=== PATIENT | male | born 1950 | race American Indian/Alaskan Native ===

== ENCOUNTER 2017-07-29 09:56 | Emergency (ER) | payer MEDICARE ==
--- NOTE | 2017-07-29 10:31 | Emergency Department Report ---
Chief Complaint: Chest Pain Stated Complaint: CP/BACK PAIN/RICHIE Time Seen by Provider: 07/29/17 10:28 - HPI History of Present Illness: PT c/o cough x 1 week Sore throat x 1 week + SOB - ROS Review of Systems: + wheezing + cough + R chest pain + back pain - Exam Vital Signs: Vital Signs 07/29/17 10:04 Temperature 98 F Pulse Rate 60 Respiratory 18 Rate Blood Pressure 158/83 O2 Sat by Pulse 99 Oximetry Physical Exam: no exudative pharyngitis noted no chest wall tenderness no wheezing appreciated at this time MSE screening note: Focused history and physical exam performed. Due to findings the following was ordered: ekg, labs, xr ED Disposition for MSE Condition: Stable Referrals: PRIMARY CARE, [Primary Care Provider] - 3-5 Days
--- NOTE | 2017-07-29 11:08 | XRay Report ---
PA and lateral chest: Wheezing; SOB; cough. There is a faint area of patchy density in the right upper lobe area. The lungs otherwise are clear and unremarkable. The heart is normal in size. No prior study for comparison. Impression: Questionable right upper lobe infiltrate.
[2017-07-29 12:01] LABS: Basophils % (Auto) 0.7 % (0.0-1.8); Eosinophils % (Auto) 4.7 % (0.0-4.3); Hemoglobin 14.5 gm/dl (11.8-15.2); Mean Corpuscular HGB Conc 33 % (32-34); Mean Corpuscular Hemoglobin 29 pg (28-32); Mean Corpuscular Volume 88 fl (84-94); Platelet Count 193 K/mm3 (140-440); Red Blood Count 4.98 M/mm3 (3.65-5.03); Red Cell Distribution Width 14.5 % (13.2-15.2); White Blood Count 5.7 K/mm3 (4.5-11.0)
[2017-07-29 12:04] LABS: BUN/Creatinine Ratio 11; Blood Urea Nitrogen 8 mg/dL (9-20); Calcium 8.4 mg/dL (8.4-10.2); Carbon Dioxide 27 mmol/L (22-30); Glucose 98 mg/dL (75-100)
[2017-07-29 12:05] LABS: Anion Gap 15 mmol/L; Chloride 106.2 mmol/L (98-107); Potassium 4.8 mmol/L (3.6-5.0); Sodium 143 mmol/L (137-145)
[2017-07-29] MEDS ORDERED: PROVENTIL IH ONE (13:56)
[2017-07-29] MEDS ORDERED: ZITHROMAX PO ONE (13:56)
[2017-07-29] MEDS ORDERED: ALUM-MAG HYDROX-SIMETH 200-200-20MG/5ML PO ONE (13:56)
[2017-07-29] MEDS ORDERED: TORADOL IM ONE (13:56)
--- NOTE | 2017-07-29 13:58 | Emergency Department Report ---
- General Chief Complaint: Chest Pain Stated Complaint: CP/BACK PAIN/RICHIE Time Seen by Provider: 07/29/17 10:28 Source: patient, RN notes reviewed Mode of arrival: Ambulatory Limitations: No Limitations - History of Present Illness Initial Comments: This is a 67-year-old male who was previously on known to this provider. Patient endorses a history of hypothyroidism, gout and hypertension. He also endorses a history of intermittent bronchitis, reports he does not consume tobacco, cannabis, cocaine, marijuana. Patient presents to the ER with a complaint of cough 1 week. It is productive of mucus. It is associated with anterior chest wall pain, and the pain in the chest wall was not present when he is not coughing. The chest wall pain does not radiate to the back, arms or neck. There is no posterior leg pain or leg swelling, no recent trips greater than 4 hours, and no recent hospital admissions. Patient denies nausea, vomiting, diaphoresis. He has mild soreness of breath only when he coughs. Otherwise, there is no shortness of breath. His symptoms have been present for one week. He reports he typically improve when he gets "antibiotics." No recent travel, no recent incarceration, no IV drug abuse. He also describes lower back pain which is associated with coughing. There is no upper thoracic pain at this time. MD Complaint: cough, sore throat, nasal congestion -: Gradual Quality: dull Consistency: intermittent Improves With: rest Worsens With: activity Associated Symptoms: myalgias, rhinorrhea, nasal congestion, sore throat, cough , chest pain. denies: fever, chills, abdominal pain, nausea, vomiting, diarrhea , dysuria, rash, confusion, right sweats, weight loss, epistaxis, hoarseness, ear pain - Related Data Previous Rx's Medication Instructions Recorded Last Taken Type Albuterol Sulfate [Albuterol 0.63% 0.63 mg IH Q4HR PRN #2 ml 07/29/17 Unknown Rx NEBS] Albuterol Sulfate [Proair 90 mcg IH Q4HR PRN #2 aer.[email or web address] 07/29/17 Unknown Rx Respiclick] Azithromycin [Zithromax TAB] 250 mg PO QDAY #4 tablet 07/29/17 Unknown Rx Benzonatate [Tessalon Perles] 100 mg PO Q8HR PRN #30 capsule 07/29/17 Unknown Rx Fluticasone [Flonase] 1 spray NS QDAY #1 bottle 07/29/17 Unknown Rx Ibuprofen [Motrin] 600 mg PO Q8H PRN #30 tablet 07/29/17 Unknown Rx Allergies Allergy/AdvReac Type Severity Reaction Status Date / Time codeine Allergy Unknown Verified 07/29/17 10:08 ED Review of Systems ROS: Stated complaint: CP/BACK PAIN/RICHIE Other details as noted in HPI Constitutional: denies: fever Eyes: denies: vision change ENT: throat pain, congestion Respiratory: cough Cardiovascular: chest pain Gastrointestinal: denies: abdominal pain Genitourinary: denies: dysuria Musculoskeletal: back pain, myalgia Skin: denies: lesions Neurological: denies: weakness Psychiatric: denies: anxiety ED Past Medical Hx - Past Medical History Previous Medical History?: Yes Hx Hypertension: Yes Additional medical history: gout - Social History Smoking Status: Never Smoker Substance Use Type: None - Medications Home Medications: Home Medications Medication Instructions Recorded Confirmed Last Taken Type Albuterol Sulfate [Albuterol 0.63% 0.63 mg IH Q4HR PRN #2 ml 07/29/17 Unknown Rx NEBS] Albuterol Sulfate [Proair 90 mcg IH Q4HR PRN #2 aer.pow.ba 07/29/17 Unknown Rx Respiclick] Azithromycin [Zithromax TAB] 250 mg PO QDAY #4 tablet 07/29/17 Unknown Rx Benzonatate [Tessalon Perles] 100 mg PO Q8HR PRN #30 capsule 07/29/17 Unknown Rx Fluticasone [Flonase] 1 spray NS QDAY #1 bottle 07/29/17 Unknown Rx Ibuprofen [Motrin] 600 mg PO Q8H PRN #30 tablet 07/29/17 Unknown Rx ED Physical Exam - General Limitations: No Limitations General appearance: alert, in no apparent distress - Head Head exam: Present: atraumatic, normocephalic - Eye Eye exam: Present: normal appearance, EOMI. Absent: nystagmus - ENT ENT exam: Present: normal exam, normal orophraynx, mucous membranes moist, normal external ear exam - Neck Neck exam: Present: normal inspection, full ROM. Absent: tenderness, meningismus - Respiratory Respiratory exam: Present: normal lung sounds bilaterally, chest wall tenderness. Absent: respiratory distress, wheezes, rales, rhonchi, stridor - Cardiovascular Cardiovascular Exam: Present: regular rate, normal rhythm, normal heart sounds. Absent: bradycardia, tachycardia, irregular rhythm, systolic murmur, diastolic murmur, rubs, gallop - GI/Abdominal GI/Abdominal exam: Present: soft, normal bowel sounds. Absent: distended, tenderness, guarding, rebound, rigid, pulsatile mass - Rectal Rectal exam: Present: deferred - Extremities Exam Extremities exam: Present: normal inspection, full ROM, normal capillary refill. Absent: calf tenderness - Back Exam Back exam: Present: normal inspection, full ROM. Absent: tenderness, CVA tenderness (R), CVA tenderness (L), muscle spasm, paraspinal tenderness, vertebral tenderness - Neurological Exam Neurological exam: Present: alert, oriented X3, normal gait, other (Extraocular movements intact. Tongue midline. No facial droop. Facial sensation intact to light touch in the V1, V2, V3 distribution bilaterally. 5 and 5 strength in 4 extremities.. Sensation is intact to light touch in 4 extremities.). Absent : motor sensory deficit - Psychiatric Psychiatric exam: Present: normal affect, normal mood - Skin Skin exam: Present: warm, dry, intact, normal color. Absent: rash ED Course Vital Signs 07/29/17 07/29/17 07/29/17 10:04 13:56 14:03 Temperature 98 F 97.7 F Pulse Rate 60 57 L Pulse Rate [ 92 H Bilateral] Respiratory 18 16 Rate Respiratory 16 Rate [Bilateral ] Blood Pressure 158/83 Blood Pressure 175/93 [Left] O2 Sat by Pulse 99 99 Oximetry 07/29/17 14:08 Temperature Pulse Rate Pulse Rate [ 92 H Bilateral] Respiratory Rate Respiratory 16 Rate [Bilateral ] Blood Pressure Blood Pressure [Left] O2 Sat by Pulse Oximetry ED Medical Decision Making - Lab Data Result diagrams: 07/29/17 11:07 07/29/17 11:07 Vital Signs 07/29/17 07/29/17 07/29/17 10:04 13:56 14:03 Temperature 98 F 97.7 F Pulse Rate 60 57 L Pulse Rate [ 92 H Bilateral] Respiratory 18 16 Rate Respiratory 16 Rate [Bilateral ] Blood Pressure 158/83 Blood Pressure 175/93 [Left] O2 Sat by Pulse 99 99 Oximetry 07/29/17 14:08 Temperature Pulse Rate Pulse Rate [ 92 H Bilateral] Respiratory Rate Respiratory 16 Rate [Bilateral ] Blood Pressure Blood Pressure [Left] O2 Sat by Pulse Oximetry Lab Results 07/29/17 07/29/17 07/29/17 Range/Units 11:07 11:07 11:07 WBC 5.7 (4.5-11.0) K/mm3 RBC 4.98 (3.65-5.03) M/mm3 Hgb 14.5 (11.8-15.2) gm/dl Hct 44.0 (35.5-45.6) % MCV 88 (84-94) fl MCH 29 (28-32) pg MCHC 33 (32-34) % RDW 14.5 (13.2-15.2) % Plt Count 193 (140-440) K/mm3 Lymph % (Auto) 35.2 H (13.4-35.0) % [place] % (Auto) 10.6 H (0.0-7.3) % Eos % (Auto) 4.7 H (0.0-4.3) % Baso % (Auto) 0.7 (0.0-1.8) % Lymph # 2.0 (1.2-5.4) K/mm3 [place] # 0.6 (0.0-0.8) K/mm3 Eos # 0.3 (0.0-0.4) K/mm3 Baso # 0.0 (0.0-0.1) K/mm3 Seg Neutrophils % 48.8 (40.0-70.0) % Seg Neutrophils # 2.8 (1.8-7.7) K/mm3 Sodium 143 (137-145) mmol/L Potassium 4.8 (3.6-5.0) mmol/L Chloride 106.2 (98-107) mmol/L Carbon Dioxide 27 (22-30) mmol/L Anion Gap 15 mmol/L BUN 8 L (9-20) mg/dL Creatinine 0.7 L (0.8-1.5) mg/dL Estimated GFR > 60 ml/min BUN/Creatinine Ratio 11 % Glucose 98 (75-100) mg/dL Calcium 8.4 (8.4-10.2) mg/dL Troponin T < 0.010 (0.00-0.029) ng/mL NT-Pro-B Natriuret Pep 73.80 (0-900) pg/mL - EKG Data -: EKG Interpreted by Ms - EKG Data 07/29/17 15:20 Sinus, 60 bpm, normal axis, normal intervals, not morphologically consistent with STEMI. EKG #2 demonstrates sinus bradycardia, 52 bpm, normal intervals, normal axis, motion artifact - Radiology Data Radiology results: report reviewed, image reviewed X-ray of the chest suggest possible mild upper lobe infiltrate in the right hemithorax. Otherwise no acute disease. - Medical Decision Making Differential diagnosis: Bronchitis, pneumonia, costochondritis Assessment and plan: 67-year-old male, no pulmonary embolus or DVT risk factors , low risk by well's criteria, low risk by RYLAND score, low risk by heart score, with 1 week of cough, mucus production, chest wall pain, lower back pain. Patient is afebrile, with reassuring vital signs, reproducible chest wall discomfort, slight hypertension. Symptoms present for one week, no suspicion for unstable angina or acute coronary syndrome at this time given clinical history and exam, as per the [employer] clinical policy, myocardial infarction may be excluded with 1 set of troponins Are present for greater than 8 hours. Clinically do not appreciate any focal findings in the upper lung carballo, patient does not have risk factors for TB, we'll treat empirically for bronchitis with albuterol, cough medication, azithromycin. Return precautions are reviewed. Critical care attestation.: If time is entered above; I have spent that time in minutes in the direct care of this critically ill patient, excluding procedure time. ED Disposition Clinical Impression: Bronchitis Disposition: [id number] TO HOME OR SELFCARE Is pt being admited?: No Does the pt Need Aspirin: No Condition: Stable Instructions: Acute Bronchitis (ED) Additional Instructions: Symptoms likely coming from bronchitis. Symptoms from bronchitis typically take 4-6 weeks to resolve. Take the medications as directed. Follow up with a primary care doctor within the next 2 weeks. Please note that blood pressure was elevated. This should be followed up and managed by an outpatient primary care doctor. Long-term complications of hypertension and elevated blood pressure include stroke, heart attack, disability, , paralysis, loss of quality of life. Return to the ER right away with new pain, worsening pain, migration of pain, fevers, chills, lethargy, irritability, projectile vomiting, change in mental status, inability to tolerate liquid feeds. Prescriptions: Albuterol Sulfate [Albuterol 0.63% NEBS] 0.63 mg IH Q4HR PRN #2 ml PRN Reason: Wheezing Albuterol Sulfate [Proair Respiclick] 90 mcg IH Q4HR PRN #2 aer.pow.ba PRN Reason: Wheezing Azithromycin [Zithromax TAB] 250 mg PO QDAY #4 tablet Benzonatate [Tessalon Perles] 100 mg PO Q8HR PRN #30 capsule PRN Reason: Cough Fluticasone [Flonase] 1 spray NS QDAY #1 bottle Ibuprofen [Motrin] 600 mg PO Q8H PRN #30 tablet PRN Reason: Pain Referrals: PRIMARY CAREMD [Primary Care Provider] - 3-5 Days JILL SEE MD [Staff Physician] - 3-5 Days [facility] [Provider Group] - 3-5 Days
[2017-07-29 14:06] VITALS: BP 175/93
[2017-07-29] MEDS ORDERED: ZESTRIL PO ONE (14:09)
[2017-07-29] MEDS ORDERED: NORVASC PO ONE (14:10)
== END 2017-07-29 15:36 | disposition home or self-care (01) ==
LOC: ED 09:56
DX: J40 Bronchitis, not specified as acute or chronic (principal); I10 Essential (primary) hypertension
CPT/HCPCS: 36415; 71020; 80048; 83880; 84484; 85025; 93005; 93010; 94640; 96372; 99284; J1885